=== PATIENT | female | born 2005 | race Caucasian/White ===

== ENCOUNTER 2023-01-31 15:41 | Outpatient (CLI) | payer MEDICAID, SELFPAY ==
[2023-01-31 16:01] VITALS: BP 121/74; PULSE 99
[2023-01-31 16:16] VITALS: BP 110/71; PULSE 85
[2023-01-31 16:30] VITALS: BP 108/67; PULSE 85
[2023-01-31 16:35] VITALS: BP 121/74; PULSE 85
== END 2023-01-31 16:35 | disposition home or self-care (01) ==
LOC: ANHOBOP 15:50 → ANHOBPP 15:50
PROVIDERS: Visit Provider Obstetrics & Gynecology
DX: O42.90 Premature rupture of membranes, unspecified as to length of time between rupture and onset of labor, unspecified weeks of gestation (principal); Z3A.00 Weeks of gestation of pregnancy not specified
CPT/HCPCS: 59025; 84112; 99199

== ENCOUNTER 2023-02-18 19:42 | Observation (INO) | payer MEDICAID, SELFPAY ==
[2023-02-18 20:04] VITALS: BP 122/80; PULSE 84
[2023-02-18 20:21] VITALS: BMI 49.9
--- NOTE | 2023-02-18 20:21 | OBADM ---
This patient, Moisés Olson, admitted to the OB room Labor/Delivery/Recovery 107 for observation. Patient/family oriented to hospital policies and general routines including ID bracelet, bed and alarms, visiting hours, pain management, procedures, bathroom and other care routines, personal items, smoking policy, room service/diet, and visiting hours. Patient/Family are encouraged to report perceived risks to care and to ask questions if they do not understand what they are told or what they should do.
--- NOTE | 2023-03-12 22:55 | PM.OBTRLD ---
OB - Triage/Final Diagnosis Visit Information Comments/Additional reasons for admission: I have assessed the risk for this patient, Moisés Phyllis Olson, and determined that she would benefit from observation care. Final Diagnosis (1) False labor: Code(s): O47.9 - False labor, unspecified Status: Acute
== END 2023-02-18 20:30 | disposition home or self-care (01) ==
PROVIDERS: Admitting Provider Obstetrics & Gynecology; Visit Provider Obstetrics & Gynecology
DX: O47.1 False labor at or after 37 completed weeks of gestation (principal); Z3A.37 37 weeks gestation of pregnancy
CPT/HCPCS: G0378; G0379

== ENCOUNTER 2023-02-27 22:45 | Inpatient (IN) | payer MEDICAID, SELFPAY ==
[2023-02-28] VITALS (339 sets, daily range): BP systolic 85–174; BP diastolic 46–117; PULSE 57–98; RESP 18–22; TEMP 36.1–37; O2SAT 93–100; BMI 52.0
--- NOTE | 2023-02-28 00:38 | LDADM ---
This patient, Moisés Olson, was admitted to Labor/Delivery/Recovery 109 on 02/27/23 at 22:45. Plans for labor, pain management and were discussed with patient. Patient/family oriented to hospital policies and general routines including ID bracelet, bed and alarms, visiting hours, pain management, procedures, bathroom and other care routines, personal items, smoking policy, room service/diet and guest tray routines, security routines, and visiting hours. Patient/Family are encouraged to report perceived risks to care and to ask questions if they do not understand what they are told or what they should do. See OBIX for further documentation.
[2023-02-28 01:31] LABS: Basophils Percent Auto 0.3 % (0.2-1.2); Eosinophils Percent Auto 0.4 % (0-4.4); Hematocrit 36.7 % (37.0-47.0); Hemoglobin 12.8 g/dL (12.0-15.0); Immature Granulocyte Absolute 0.09 K/mm3 (0.00-0.031); Immature Granulocyte Percent A 0.9 % (0-0.5); Lymphocytes Percent Auto 15.3 % (18.3-44.2); Mean Corpuscular HGB Conc 34.9 g/dl (32-36); Mean Corpuscular Hemoglobin 29.5 pg (26-34); Mean Corpuscular Volume 84.6 fl (80-100); Mean Platelet Volume 11.3 fl (7.4-10.4); Monocytes Absolute Auto 0.6 K/mm3 (0.1-0.6); Monocytes Percent Auto 5.5 % (2.6-8.5); Neutrophils Absolute Auto 8.1 K/mm3 (1.3-6.7); Neutrophils Percent Auto 77.6 % (45.5-73.1); Platelet Count Result 141 k/mm3 (150-375); Red Blood Count 4.34 M/mm3 (4.2-5.4); Red Cell Distribution Width 13.5 % (11.5-14.5); White Blood Count 10.4 K/mm3 (4.5-10.0)
[2023-02-28] MEDS: LABETALOL HCL INJ 100 MG/20 ML VIAL 20 MG IV PUSH (01:32)
[2023-02-28] MEDS: LACTATED RINGERS 1,000 ML 75 ML IV CONT ×3 (01:32→22:24)
[2023-02-28] MEDS: MAGNESIUM SULF 4 GM/WATER100ML 4 GM/100 ML BAG IVPB (01:34)
[2023-02-28 01:40] LABS: Uric Acid 7.9 mg/dL (3.0-5.9)
[2023-02-28] MEDS: DINOPROSTONE 10 MG VAG INSERT VAGINAL (01:40)
[2023-02-28] MEDS: MAGNESIUM SULF 20GM/WATER500ML 500 ML 50 MG IV CONT ×3 (01:52→22:25)
[2023-02-28 02:11] LABS: Alanine Aminotransferase 37 U/L (6-35); Albumin Level 2.8 g/dL (3.7-5.6); Alkaline Phosphatase 242 U/L (45-116); Anion Gap 4 mmol/L (8-16); Aspartate Amino Transferase 74 U/L (14-36); Bilirubin,Total 0.9 mg/dL (0.2-1.3); Blood Urea Nitrogen 11 mg/dL (8-21); Calcium 7.8 mg/dL (8.9-10.7); Carbon Dioxide 22 mmol/L (22-30); Chloride 109 mmol/L (98-107); Estimated CRCL calculation 159 ml/min; Estimated Glomerular Filt Rate > 60; Glucose 83 mg/dL (65-110); Potassium 3.4 mmol/L (3.4-5.0); Sodium 135 mmol/L (134-143)
[2023-02-28 04:50] LABS: HIV 1/2 Ab P24 Ag Result Negative (Negative)
[2023-02-28] MEDS: LABETALOL HCL INJ 100 MG/20 ML VIAL 40 MG IV PUSH (06:05)
--- NOTE | 2023-02-28 07:22 | PM.IMHP ---
H&P: HPI History of Present Illness Date/Time: 02/28/23 07:22 Chief Complaint: pt arrived to labor and delivery fo elective IOL, on admission severe range blood pressures noted and 2+ bilateral pitting lower extremity edema. denies arora, visual changes, epigastric pain. Mildly elevated liver enzymes, PLT 141 and uric acid 7.9 cm. Pt's has been uncomplicated except for obesity. Pt has been treated with one dose of labetalol and is now on magnesium sulfate Review of Systems Review of Systems: All systems reviewed & are unremarkable except as noted in HPI and below PMFSH Family History Family History (Updated 02/26/23 @ 14:12 by Bella Rodney RN) Father Diabetes mellitus Mother Diabetes mellitus Social History Social History Smoking status: Never smoker Substance use: never Lack of Transportation: No Lack of Food: Never True Current Housing: I Have Housing Concerned About Future Housing: No Difficulty Paying Gas/Electric Bills: No Difficulty Paying for Meds: No Currently Unemployed: No Education: High School Diploma/GED Difficulty w/ Childcare or Family Care: No Spiritual care concerns: No Meds Home Medications and Allergies Home Medications Medication Instructions Recorded Confirmed Type vit#24-iron amino acid 1 tablet PO DAILY 02/26/23 02/26/23 History chelat-folic acid 30 mg-975 mcg tablet Allergies Allergy/AdvReac Type Severity Reaction Status Date / Time adhesive tape AdvReac Itching Verified 02/26/23 14:10 flu vaccine Allergy Nausea and Uncoded 02/26/23 14:10 Vomiting Vital Signs Vital Signs - 24 hr 02/28/23 00:36 02/28/23 00:43 02/28/23 01:01 Temperature Pulse Rate 71 60 Blood Pressure 174/115 H 167/101 H Pulse Oximetry Oxygen Delivery Room Air 02/28/23 01:16 02/28/23 01:31 02/28/23 01:32 Temperature Pulse Rate 65 57 L Blood Pressure 169/96 H 173/104 H Pulse Oximetry 98 Oxygen Delivery 02/28/23 01:37 02/28/23 01:40 02/28/23 01:42 Temperature Pulse Rate 73 79 Blood Pressure 151/109 H 156/108 H Pulse Oximetry 98 100 Oxygen Delivery 02/28/23 01:45 02/28/23 01:47 02/28/23 01:50 Temperature Pulse Rate 81 82 Blood Pressure 148/102 H 142/102 H Pulse Oximetry 98 Oxygen Delivery 02/28/23 01:52 02/28/23 01:57 02/28/23 02:00 Temperature Pulse Rate 73 Blood Pressure 154/100 H Pulse Oximetry 97 97 Oxygen Delivery 02/28/23 02:02 02/28/23 02:07 02/28/23 02:12 Temperature Pulse Rate Blood Pressure Pulse Oximetry 98 97 97 Oxygen Delivery 02/28/23 02:15 02/28/23 02:17 02/28/23 02:22 Temperature Pulse Rate 68 Blood Pressure 135/97 H Pulse Oximetry 98 98 Oxygen Delivery 02/28/23 02:27 02/28/23 02:30 02/28/23 02:32 Temperature Pulse Rate 84 Blood Pressure 143/98 H Pulse Oximetry 97 97 Oxygen Delivery 02/28/23 02:37 02/28/23 02:42 02/28/23 02:45 Temperature Pulse Rate 68 Blood Pressure 127/88 Pulse Oximetry 98 97 Oxygen Delivery 02/28/23 02:47 02/28/23 02:52 02/28/23 02:57 Temperature Pulse Rate Blood Pressure Pulse Oximetry 97 98 98 Oxygen Delivery 02/28/23 03:00 02/28/23 03:02 02/28/23 03:07 Temperature Pulse Rate 71 Blood Pressure 137/84 Pulse Oximetry 98 98 Oxygen Delivery 02/28/23 03:12 02/28/23 03:15 02/28/23 03:17 Temperature Pulse Rate 75 Blood Pressure 125/88 Pulse Oximetry 98 98 Oxygen Delivery 02/28/23 03:22 02/28/23 03:27 02/28/23 03:30 Temperature Pulse Rate 68 Blood Pressure 136/88 Pulse Oximetry 98 97 Oxygen Delivery 02/28/23 03:32 02/28/23 03:37 02/28/23 03:42 Temperature Pulse Rate Blood Pressure Pulse Oximetry 98 98 98 Oxygen Delivery 02/28/23 03:45 02/28/23 03:47 02/28/23 03:52 Temperature Pulse Rate 72 Blood Pressure 126/91 H Pulse Oximetry 98 98
--- NOTE | 2023-02-28 12:26 | PM.OBPNLAB ---
Pain Control Date/time seen: 02/28/23 12:26 SVE 1-2cm/60/-2 AROM small amount of clear, odorless fluid, will start labetalol 200mg BID orally, co-managed with dr. clark
[2023-02-28] MEDS: LABETALOL HCL 100 MG TABLET 200 MG PO (13:00)
[2023-02-28] MEDS: OXYTOCIN 30 UNITS/NS 500 ML 30 UNITS/500 ML BAG 6 UNITS IV CONT ×2 (14:00→19:23)
--- NOTE | 2023-02-28 15:06 | WPDANESEPPF ---
Anes - Initial Pre Proc Eval Date/Time: 02/28/23 15:06 Surgeon: Tomy Rollins MD Pre Op Diagnosis: Labor Patient Data Age: 17 Gender: F Height: 1.55 m Weight: 125 kg Last Vital Signs Temp 36.7 C 02/28/23 11:30 Pulse 82 02/28/23 15:05 Resp 20 02/28/23 11:30 BP 89/61 L 02/28/23 15:05 Pulse Ox 98 02/28/23 15:04 O2 Del Method Room Air 02/28/23 00:36 Allergies Allergy/AdvReac Type Severity Reaction Status Date / Time adhesive tape AdvReac Itching Verified 02/26/23 14:10 flu vaccine Allergy Nausea and Uncoded 02/26/23 14:10 Vomiting Home Medications Medication Instructions Recorded Confirmed Type vit#24-iron amino acid 1 tablet PO DAILY 02/26/23 02/26/23 History chelat-folic acid 30 mg-975 mcg tablet Laboratory Tests 02/28/23 02/28/23 01:01 01:05 WBC 10.4 H K/mm3 (4.5-10.0) RBC 4.34 M/mm3 (4.2-5.4) Hgb 12.8 g/dL (12.0-15.0) Hct 36.7 L % (37.0-47.0) MCV 84.6 fl (80-100) MCH 29.5 pg (26-34) MCHC 34.9 g/dl (32-36) RDW 13.5 % (11.5-14.5) Plt Count 141 L k/mm3 (150-375) MPV 11.3 H fl (7.4-10.4) Immature Gran % (Auto) 0.9 H % (0-0.5) Neut % (Auto) 77.6 H % (45.5-73.1) Lymph % (Auto) 15.3 L % (18.3-44.2) [place] % (Auto) 5.5 % (2.6-8.5) Eos % (Auto) 0.4 % (0-4.4) Baso % (Auto) 0.3 % (0.2-1.2) Lymph # (Auto) 1.60 K/mm3 (0.9-3.2) [place] # (Auto) 0.6 K/mm3 (0.1-0.6) Eos # (Auto) 0.0 K/mm3 (0-0.3) Baso # (Auto) 0.0 K/mm3 (0.0-0.1) Abs Immat Gran (auto) 0.09 H K/mm3 (0.00-0.031) Absolute Neuts (auto) 8.1 H K/mm3 (1.3-6.7) Absolute Nucleated RBC 0.0 K/mm3 (0.0-0.012) Nucleated RBC % 0.0 % (0.0-0.2) Sodium 135 mmol/L (134-143) Potassium 3.4 mmol/L (3.4-5.0) Chloride 109 H mmol/L (98-107) Carbon Dioxide 22 mmol/L (22-30) Anion Gap 4 L mmol/L (8-16) BUN 11 mg/dL (8-21) Creatinine 0.60 L mg/dL (0.7-1.0) Estim Creat Clear Calc 159 ml/min Estimated GFR > 60 (59 - ) Glucose 83 mg/dL (65-110) Uric Acid 7.9 H mg/dL (3.0-5.9) Calcium 7.8 L mg/dL (8.9-10.7) Total Bilirubin 0.9 mg/dL (0.2-1.3) AST 74 H U/L (14-36) ALT 37 H U/L (6-35) Alkaline Phosphatase 242 H U/L (45-116) Total Protein 5.0 L g/dL (6.3-8.6) Albumin 2.8 L g/dL (3.7-5.6) RPR Pending HIV 1&2 Ab/P24 Ag 4thGn Negative (Negative) Blood Type O Negative Antibody Screen Positive Antibody Identification Passive Due to RH Imm Glob Antigen Identification Not Reportable ANGI, IgG Interpret Not Performed ANGI, Poly Interpret Negative ANGI, Complement Interp Not Performed Patient hx anesthesia problems: none Family hx anesthesia problems: none Results Review: All pre-operative results and documents have been reviewed as part of the pre-operative evaluation. [facility] Family History Family History Father Diabetes mellitus Mother Diabetes mellitus Social History Social History Smoking status: Never smoker Substance use: never Lack of Transportation: No Lack of Food: Never True Current Housing: I Have Housing Concerned About Future Housing: No Difficulty Paying Gas/Electric Bills: No Difficulty Paying for Meds: No Currently Unemployed: No Education: High School Diploma/GED Difficulty w/ Childcare or Family Care: No Spiritual care concerns: No Anes - Eval Final PreProcedure Day of Procedure 02/28/23 15:06 Patient weight: super morbidly obese Neurological: alert and oriented ASA classification: III Emergent: no Anesthetic plan
[2023-02-28] MEDS: SODIUM CHLORIDE 0.9% IV 300 ML 600 ML I-UTERINE (18:00)
[2023-03-01] VITALS (224 sets, daily range): BP systolic 110–163; BP diastolic 58–117; PULSE 56–117; RESP 15–18; TEMP 36.2–37.6; O2SAT 94–100
[2023-03-01] MEDS: LABETALOL HCL 100 MG TABLET 200 MG PO ×2 (01:02→12:58)
[2023-03-01] MEDS: CALCIUM CARBONATE (TUMS) 500 MG (200 MG ELEMENTAL) 400 MG PO (01:36)
[2023-03-01] MEDS: OXYTOCIN 30 UNITS/NS 500 ML 30 UNITS/500 ML BAG 20 UNITS IV CONT (07:00)
[2023-03-01] MEDS: AMPICILLIN 2 GM/NS 100 ML 2 GM/100 ML BAG IVPB (07:02)
[2023-03-01 07:18] LABS: Mean Platelet Volume 11.2 fl (7.4-10.4); Platelet Count Result 151 k/mm3 (150-375)
[2023-03-01 07:39] LABS: Alanine Aminotransferase 35 U/L (6-35); Albumin Level 3.1 g/dL (3.7-5.6); Alkaline Phosphatase 287 U/L (45-116); Anion Gap 3 mmol/L (8-16); Aspartate Amino Transferase 45 U/L (14-36); Bilirubin,Total 0.5 mg/dL (0.2-1.3); Blood Urea Nitrogen 8 mg/dL (8-21); Carbon Dioxide 25 mmol/L (22-30); Chloride 105 mmol/L (98-107); Estimated CRCL calculation 122 ml/min; Estimated Glomerular Filt Rate > 60; Glucose 90 mg/dL (65-110); Potassium 3.7 mmol/L (3.4-5.0); Sodium 133 mmol/L (134-143); Uric Acid 8.8 mg/dL (3.0-5.9)
[2023-03-01] MEDS: MAGNESIUM SULF 20GM/WATER500ML 500 ML 50 MG IV CONT ×2 (07:43→17:48)
--- NOTE | 2023-03-01 07:51 | PM.OBPNLAB ---
Pain Control Date/time seen: 03/01/23 07:51 pt bp not severe range this am, doing well, denies sxs, on pitocin, 5 cm /90 per RN, dr clark aware Pain control: tolerating well and epidural
[2023-03-01 10:05] LABS: Rapid Plasma Reagin Non-Reactive (NonReactive)
[2023-03-01] MEDS: LACTATED RINGERS 1,000 ML 75 ML IV CONT (10:12)
[2023-03-01] MEDS: AMPICILLIN 1 GM/NS 50 ML 1 GM/50 ML BAG IVPB (10:12)
[2023-03-01] MEDS: ACETAMINOPHEN 500 MG TABLET 1000 MG PO (11:05)
--- NOTE | 2023-03-01 15:01 | WPDHPUPDATE1 ---
History and Physical Update Update Date/Time: 03/01/23 15:01 17-year-old primiparous female with preeclampsia on magnesium sulfate. She has failed to progress in labor. She has reassuring status. We have agreed to proceed with delivery. She understands risks, benefits, and alternatives. She has completed the informed consent process is ready to proceed. History and Physical has been reviewed, including an updated exam of the patient. There are NO changes in the patient's condition. Risks, benefits, and alternatives have been discussed and questions answered. Patient agrees to proceed with procedure.
[2023-03-01] MEDS: ceFAZolin 3 GM/D5W 100 ML 100 ML IVPB (15:04)
[2023-03-01] MEDS: AZITHROMYCIN 500 MG/NS 250 ML 500 MG/250 ML BAG 250 MG IVPB (15:30)
[2023-03-01] MEDS: miSOPROStol 200 MCG TABLET 1000 MCG RECTAL (16:00)
--- NOTE | 2023-03-01 16:01 | P.OP_ITS ---
Procedure Note - Detailed Date of Procedure 03/01/23 Pre-op Diagnosis Labor Failure to progress Post-op Diagnosis Same Procedure Performed Low-transverse section Surgeon Tomy Rollins MD Anesthesia Spinal Indications failure to progress Findings Normal gestational maternal anatomy, average size , normal Apgars. meconium Description of Procedure The patient was taken the operating room. She was prepped and draped in dorsal supine position with a leftward tilt. This was done after spinal anesthetic was applied. A low-transverse skin incision was made and carried down till of the fascia with the knife. The fascial incision was made with the knife. The fascial incision was extended laterally with Clemens scissors. The fascia was tented upward superiorly and inferiorly the rectus muscles were dissected off bluntly. The rectus muscles were the midline. The preperitoneal fat and peritoneum were dissected open bluntly at the superior aspect of the rectus muscles. The peritoneal incision was extended superior and inferior with good position of bladder. The uterine incision was made with a scalpel down to the level of the amniotic cavity. The amniotic cavity was e ntered bluntly. The infant was delivered. The cord was clamped and cut and the infant was handed off to waiting pediatric staff. Cord bloods were obtained. The placenta was removed manually. The uterus was exteriorized. The uterus was cleared of all clots, debris and membranes. The uterus was closed in 0 Vicryl running lock fashion. An imbricating over a was placed along the incision line as well. The uterus was returned to the abdomen. The gutters were cleared of all clots and debris. The fascia was closed with 0 Vicryl running fashion. The subcutaneous tissue was irrigated pinpoint bleeders were cauterized. The skin was closed with subcuticular absorbable genesis. The skin incision line was covered with glue. The patient tolerated the procedure well. She has taken recovery room in stable condition. Sponge lap and needle counts were correct x2. Urine Output 200 Complications No immediate complications Condition Stable Disposition PACU
[2023-03-01] MEDS: OXYTOCIN 30 UNITS/NS 500 ML 30 UNITS/500 ML BAG 125 UNITS IV CONT (17:48)
[2023-03-01] MEDS: KETOROLAC 30 MG/ML VIAL (*BKC) IV PUSH (21:00)
[2023-03-01] MEDS: HYDROcodone/acetaminophen (*CRX) 5-325 MG TABLET 1 TAB PO (21:01)
[2023-03-01] MEDS: DEXTROSE 5%/0.45% SOD CHL 1,000 ML 125 ML IV CONT (21:57)
[2023-03-02] VITALS (8 sets, daily range): BP systolic 103–123; BP diastolic 54–70; PULSE 72–84; RESP 18–20; TEMP 36.5–36.9; O2SAT 95–96
[2023-03-02] MEDS: LABETALOL HCL 100 MG TABLET 200 MG PO ×2 (01:08→12:32)
[2023-03-02] MEDS: MAGNESIUM SULF 20GM/WATER500ML 500 ML 50 MG IV CONT (04:36)
[2023-03-02] MEDS: DEXTROSE 5%/0.45% SOD CHL 1,000 ML 125 ML IV CONT (04:40)
[2023-03-02] MEDS: HYDROcodone/acetaminophen (*CRX) 5-325 MG TABLET 1 TAB PO ×5 (04:44→23:13)
[2023-03-02] MEDS: KETOROLAC 30 MG/ML VIAL (*BKC) IV PUSH (04:44)
[2023-03-02] MEDS: SIMETHICONE 80 MG TAB.CHEW PO ×2 (04:45→17:15)
[2023-03-02 05:31] LABS: Basophils Percent Auto 0.4 % (0.2-1.2); Hematocrit 34.2 % (37.0-47.0); Hemoglobin 11.6 g/dL (12.0-15.0); Immature Granulocyte Absolute 0.04 K/mm3 (0.00-0.031); Immature Granulocyte Percent A 0.4 % (0-0.5); Immature Platelet Fraction Pct 7.5 % (0.9-11.2); Lymphocytes Absolute Auto 0.63 K/mm3 (0.9-3.2); Lymphocytes Percent Auto 5.5 % (18.3-44.2); Mean Corpuscular HGB Conc 33.9 g/dl (32-36); Mean Corpuscular Hemoglobin 29.7 pg (26-34); Mean Corpuscular Volume 87.7 fl (80-100); Mean Platelet Volume 11.3 fl (7.4-10.4); Monocytes Absolute Auto 0.4 K/mm3 (0.1-0.6); Monocytes Percent Auto 3.3 % (2.6-8.5); Neutrophils Absolute Auto 10.3 K/mm3 (1.3-6.7); Neutrophils Percent Auto 90.4 % (45.5-73.1); Platelet Count Result 123 k/mm3 (150-375); Red Cell Distribution Width 13.6 % (11.5-14.5); White Blood Count 11.4 K/mm3 (4.5-10.0)
--- NOTE | 2023-03-02 07:34 | P.PNOB_ITS ---
OB - PN: Subj Subjective Date/time seen: 03/02/23 07:34 s/p section day 1 baby doing well no flatus present urine output good pain well managed magnesium sulfate x 24 hours post delivery OB - PN: Obj Data Labs 03/02/23 05:09 03/01/23 06:34 Labs: Laboratory Results - last 24 hr 02/28/23 03/01/23 03/02/23 01:05 06:34 05:09 WBC 11.4 H RBC 3.90 L Hgb 11.6 L Hct 34.2 L MCV 87.7 MCH 29.7 MCHC 33.9 RDW 13.6 Plt Count 123 L MPV 11.3 H Immature Gran % (Auto) 0.4 Neut % (Auto) 90.4 H Lymph % (Auto) 5.5 L [place] % (Auto) 3.3 Eos % (Auto) 0.0 Baso % (Auto) 0.4 Lymph # (Auto) 0.63 L [place] # (Auto) 0.4 Eos # (Auto) 0.0 Baso # (Auto) 0.0 Abs Immat Gran (auto) 0.04 H Absolute Neuts (auto) 10.3 H Absolute Nucleated RBC 0.0 Nucleated RBC % 0.0 % Immature Plt Fraction 7.5 Sodium 133 L Potassium 3.7 Chloride 105 Carbon Dioxide 25 Anion Gap 3 L BUN 8 Creatinine 0.80 Estim Creat Clear Calc 122 Estimated GFR > 60 Glucose 90 Uric Acid 8.8 H Calcium 7.0 L Total Bilirubin 0.5 AST 45 H ALT 35 Alkaline Phosphatase 287 H Total Protein 6.0 L Albumin 3.1 L RPR Non-reactive OB - PN A/P Time Spent With Patient Time: Total time spent is greater than 50% in coordination of care (as documented) at patient's floor/unit and/or counseling patient: Review of Systems Review of Systems: All systems reviewed & are unremarkable except as noted in HPI and below Exam Narrative: Incision CDI Const: General: cooperative and healthy appearing Chest: Chest palpation & inspection: normal inspection of the chest Resp: Effort & Inspection: normal respiratory effort Cardio: Rate: regular rate Rhythm: regular rhythm GI: Other: soft Skin: General skin exam: normal color Extrem: Right lower extremity: normal to inspection Left lower extremity: normal to inspection Psych: Appearance: grossly normal
--- NOTE | 2023-03-02 08:17 | PC.NURSE ---
[phone] Father of baby called out requesting assistance. Introductions were made and mother is demonstrating effective to the right breast using a laid-back cross cradle positioning. Mother denies any pain and infant has appropriate rocking jaw motion with intermittent suck/swallow/pausing. Resources provided for inpatient with name written on the white board and how to use the call light to request. Mother voiced understanding of information and will call if there is a request for assistance. Reported to the primary RN.
--- NOTE | 2023-03-02 08:24 | WPDANLDPN2 ---
Anes-Prog Note L&D Date/Time: 03/02/23 08:24 Comfortable throughout: section Neuraxial method: epidural Epidural/Spinal procedure site: clean & non-tender Neuro status: Neuro function grossly intact. Cardiovascular status: normal Respiratory status: normal Airway patency: baseline Mental status: baseline Post-Op hydration status: normal Vital Signs: Last Vital Signs Temp 36.5 C 03/02/23 05:00 Pulse 77 03/02/23 05:00 Resp 18 03/02/23 05:00 BP 104/61 03/02/23 05:00 Pulse Ox 96 03/02/23 05:00 O2 Del Method Room Air 03/02/23 05:00 Pain score (VAS): 0 I/O: Intake & Output 03/01/23 03/02/23 03/02/23 23:59 07:59 15:59 Intake Total 1800 2700 Output Total 890 925 Balance 910 1775 Post-procedural complaints: none Patient feedback: Patient satisfied with anesthetic care.
--- NOTE | 2023-03-02 08:24 | WPDANLDNPN2 ---
Anes-Prog Note L&D-Neuraxial Date/Time: 03/02/23 08:24 Neuraxial medications: epidural PF morphine Opiod-related complaints: none Patient feedback: Patient satisfied with post-operative pain management.
[2023-03-02] MEDS: DOCUSATE SODIUM 100 MG CAPSULE PO ×2 (08:36→17:14)
[2023-03-02] MEDS: MULTIVIT/MIN/PREN/FOL AC/IRON TABLET 1 TAB PO (08:36)
[2023-03-02] MEDS: IBUPROFEN 600 MG TABLET PO ×3 (10:55→23:13)
[2023-03-02] MEDS: ONDANSETRON INJ 4 MG/2 ML VIAL IV PUSH (13:05)
[2023-03-03] VITALS (9 sets, daily range): BP systolic 107–147; BP diastolic 63–95; PULSE 72–89; RESP 18; TEMP 36.8–38.2; O2SAT 95–99
[2023-03-03] MEDS: LABETALOL HCL 100 MG TABLET 200 MG PO ×3 (00:23→23:19)
[2023-03-03 03:40] LABS: Basophils Percent Auto 0.3 % (0.2-1.2); Eosinophils Percent Auto 0.3 % (0-4.4); Hematocrit 33.2 % (37.0-47.0); Hemoglobin 10.8 g/dL (12.0-15.0); Immature Granulocyte Absolute 0.04 K/mm3 (0.00-0.031); Immature Granulocyte Percent A 0.6 % (0-0.5); Immature Platelet Fraction Pct 6.4 % (0.9-11.2); Lymphocytes Absolute Auto 0.52 K/mm3 (0.9-3.2); Lymphocytes Percent Auto 7.6 % (18.3-44.2); Mean Corpuscular HGB Conc 32.5 g/dl (32-36); Mean Corpuscular Hemoglobin 29.6 pg (26-34); Mean Platelet Volume 10.8 fl (7.4-10.4); Monocytes Absolute Auto 0.2 K/mm3 (0.1-0.6); Monocytes Percent Auto 3.4 % (2.6-8.5); Neutrophils Percent Auto 87.8 % (45.5-73.1); Platelet Count Result 110 k/mm3 (150-375); Red Blood Count 3.65 M/mm3 (4.2-5.4); Red Cell Distribution Width 14.1 % (11.5-14.5); White Blood Count 6.9 K/mm3 (4.5-10.0)
[2023-03-03 03:53] LABS: Uric Acid 9.2 mg/dL (3.0-5.9)
[2023-03-03 03:59] LABS: Alanine Aminotransferase 19 U/L (6-35); Albumin Level 2.5 g/dL (3.7-5.6); Alkaline Phosphatase 175 U/L (45-116); Anion Gap 3 mmol/L (8-16); Aspartate Amino Transferase 30 U/L (14-36); Bilirubin,Total 0.5 mg/dL (0.2-1.3); Blood Urea Nitrogen 14 mg/dL (8-21); Calcium 6.2 mg/dL (8.9-10.7); Carbon Dioxide 23 mmol/L (22-30); Chloride 104 mmol/L (98-107); Estimated CRCL calculation 110 ml/min; Estimated Glomerular Filt Rate > 60; Glucose 79 mg/dL (65-110); Potassium 3.7 mmol/L (3.4-5.0); Sodium 130 mmol/L (134-143)
[2023-03-03] MEDS: IBUPROFEN 600 MG TABLET PO ×3 (08:13→23:20)
[2023-03-03] MEDS: HYDROcodone/acetaminophen (*CRX) 5-325 MG TABLET 1 TAB PO ×2 (08:13→15:30)
--- NOTE | 2023-03-03 09:04 | PM.OBPNVD ---
OB - PN: Subj Subjective Date/time seen: 03/03/23 09:04 magnesium sulfate stopped 03/02/23 bp normotensive denies arora, visual changes, epigastric pain labs improving baby bottle feeding and doing well OB - PN: Obj Data Labs 03/03/23 03:03 03/03/23 03:03 Labs: Laboratory Results - last 24 hr 03/03/23 03:03 WBC 6.9 RBC 3.65 L Hgb 10.8 L Hct 33.2 L MCV 91.0 MCH 29.6 MCHC 32.5 RDW 14.1 Plt Count 110 L MPV 10.8 H Immature Gran % (Auto) 0.6 H Neut % (Auto) 87.8 H Lymph % (Auto) 7.6 L [place] % (Auto) 3.4 Eos % (Auto) 0.3 Baso % (Auto) 0.3 Lymph # (Auto) 0.52 L [place] # (Auto) 0.2 Eos # (Auto) 0.0 Baso # (Auto) 0.0 Abs Immat Gran (auto) 0.04 H Absolute Neuts (auto) 6.0 Absolute Nucleated RBC 0.0 Nucleated RBC % 0.0 % Immature Plt Fraction 6.4 Sodium 130 L Potassium 3.7 Chloride 104 Carbon Dioxide 23 Anion Gap 3 L BUN 14 D Creatinine 0.90 Estim Creat Clear Calc 110 Estimated GFR > 60 Glucose 79 Uric Acid 9.2 H Calcium 6.2 L Total Bilirubin 0.5 AST 30 ALT 19 Alkaline Phosphatase 175 H Total Protein 5.0 L Albumin 2.5 L OB - PN A/P Plan day: 2 Plan: routine care Time Spent With Patient Time: Total time spent is greater than 50% in coordination of care (as documented) at patient's floor/unit and/or counseling patient: Review of Systems Review of Systems: All systems reviewed & are unremarkable except as noted in HPI and below Exam Const: General: cooperative and healthy appearing Chest: Chest palpation & inspection: normal inspection of the chest Resp: Effort & Inspection: normal respiratory effort and able to speak in complete sentences Cardio: Rate: regular rate Rhythm: regular rhythm GI: Inspection: normal to inspection Skin: General skin exam: normal color Extrem: Right lower extremity: edema Left lower extremity: edema Psych: Appearance: grossly normal Mental Status: mental status grossly normal
[2023-03-03] MEDS: MULTIVIT/MIN/PREN/FOL AC/IRON TABLET 1 TAB PO (09:54)
[2023-03-03] MEDS: DOCUSATE SODIUM 100 MG CAPSULE PO ×2 (09:54→17:18)
--- NOTE | 2023-03-03 16:45 | PC.NURSE ---
Incentive spirometer given to pt and explained use. Pt demonstrated and stated understanding.
[2023-03-03 17:07] LABS: Appearance Urine Clear (Clear); Bacteria Urine None Seen /hpf; Bilirubin Urine Negative (Negative); Blood Urine Trace (Negative); Color Urine Yellow (Yellow); Glucose Urine UA Negative (Negative); Ketones Urine Negative (Negative); Leukocyte Esterase Ur Negative LEU/UL (Negative); Nitrate Urine Negative (Negative); Non Pathogenic Casts 0-2; Protein Urine 1+ mg/dL (Negative); RBC Urine 0-2 /hpf (0-2); Specific Grav Ur 1.009 (1.001-1.035); Squamous Epithelial Cell Urine None seen /hpf (Few); Urobilinogen Urine 0.2 mg/dL (<2.0); WBC Urine 0-5 /hpf; pH Urine 5.5 (5.0-9.0)
[2023-03-03 17:11] LABS: Add Urine Microscopic? YES
[2023-03-03] MEDS: HYDROcodone/acetaminophen (*CRX) 10-325 MG TABLET 1 TAB PO (23:23)
[2023-03-04] VITALS (11 sets, daily range): BP systolic 117–159; BP diastolic 81–101; PULSE 63–102; RESP 18–20; TEMP 36.3–38.2; O2SAT 96–99
[2023-03-04] MEDS: IBUPROFEN 600 MG TABLET PO ×3 (05:45→23:58)
[2023-03-04] MEDS: HYDROcodone/acetaminophen (*CRX) 5-325 MG TABLET 1 TAB PO ×4 (05:46→23:59)
[2023-03-04 05:52] LABS: Basophils Percent Auto 0.4 % (0.2-1.2); Eosinophils Absolute Auto 0.1 K/mm3 (0-0.3); Eosinophils Percent Auto 1.6 % (0-4.4); Hematocrit 28.7 % (37.0-47.0); Hemoglobin 9.3 g/dL (12.0-15.0); Immature Granulocyte Absolute 0.03 K/mm3 (0.00-0.031); Immature Granulocyte Percent A 0.6 % (0-0.5); Immature Platelet Fraction Pct 5.3 % (0.9-11.2); Lymphocytes Absolute Auto 0.85 K/mm3 (0.9-3.2); Lymphocytes Percent Auto 17.5 % (18.3-44.2); Mean Corpuscular HGB Conc 32.4 g/dl (32-36); Mean Corpuscular Hemoglobin 29.3 pg (26-34); Mean Corpuscular Volume 90.5 fl (80-100); Mean Platelet Volume 10.6 fl (7.4-10.4); Monocytes Absolute Auto 0.3 K/mm3 (0.1-0.6); Monocytes Percent Auto 5.2 % (2.6-8.5); Neutrophils Absolute Auto 3.6 K/mm3 (1.3-6.7); Neutrophils Percent Auto 74.7 % (45.5-73.1); Platelet Count Result 111 k/mm3 (150-375); Red Blood Count 3.17 M/mm3 (4.2-5.4); Red Cell Distribution Width 13.8 % (11.5-14.5); White Blood Count 4.9 K/mm3 (4.5-10.0)
[2023-03-04] MEDS: DOCUSATE SODIUM 100 MG CAPSULE PO ×2 (10:36→16:33)
[2023-03-04] MEDS: LABETALOL HCL 100 MG TABLET 200 MG PO (10:36)
[2023-03-04] MEDS: MULTIVIT/MIN/PREN/FOL AC/IRON TABLET 1 TAB PO (10:36)
--- NOTE | 2023-03-04 12:10 | PM.OBPNVD ---
OB - PN: Subj Subjective Date/time seen: 03/04/23 12:10 Patient comments: no complaints and pain well controlled baby status: bottle feeding well [place] feeding status: exclusively bottle feeding Narrative: BPS mildly elevated. Denies TRIMBLE/BV/EP. Tmax 100.8 yesterday, afebrile since including just now with no antipyretics on board. Doing incentive spirometry. OB - PN: Obj Data Labs 03/04/23 05:40 03/03/23 03:03 Labs: Laboratory Results - last 24 hr 03/03/23 03/04/23 16:42 05:40 WBC 4.9 RBC 3.17 L Hgb 9.3 L Hct 28.7 L MCV 90.5 MCH 29.3 MCHC 32.4 RDW 13.8 Plt Count 111 L MPV 10.6 H Immature Gran % (Auto) 0.6 H Neut % (Auto) 74.7 H Lymph % (Auto) 17.5 L [place] % (Auto) 5.2 Eos % (Auto) 1.6 Baso % (Auto) 0.4 Lymph # (Auto) 0.85 L [place] # (Auto) 0.3 Eos # (Auto) 0.1 Baso # (Auto) 0.0 Abs Immat Gran (auto) 0.03 Absolute Neuts (auto) 3.6 Absolute Nucleated RBC 0.0 Nucleated RBC % 0.0 % Immature Plt Fraction 5.3 Urine Color Yellow Urine Appearance Clear Urine pH 5.5 Ur Specific [place] 1.009 Urine Protein 1+ H Urine Glucose (UA) Negative Urine Ketones Negative Ur Blood (Man) Trace Urine Nitrate Negative Urine Bilirubin Negative Urine Urobilinogen 0.2 Leukocyte Esterase Rfl Negative Urine RBC 0-2 Urine WBC 0-5 Ur Squamous Epith Cells None seen Urine Bacteria None seen Urine Casts 0-2 OB - PN A/P Assessment and Plan (1) Preeclampsia: Qualifiers: Trimester: third trimester Qualified Code(s): O14.93 - Unspecified pre-eclampsia, third trimester Code(s): O14.90 - Unspecified pre-eclampsia, unspecified trimester Status: Acute Plan BPs stable, continue labetalol low grade fever yesterday, has not persisted. continue IC. UA neg. incision C/D/I. Temps today prior to motrin doses to make sure not masking. DC home tomorrow if remains afebrile. Plan day: 3 Plan: routine care Time Spent With Patient Time: Total time spent is greater than 50% in coordination of care (as documented) at patient's floor/unit and/or counseling patient: Exam Narrative: NAD abdomen soft, appropriately tender, incision CDI Extremities nontender with 1+ edema
[2023-03-04] MEDS: LABETALOL HCL 100 MG TABLET 300 MG PO (21:02)
[2023-03-05 05:26] VITALS: BP 150/97; TEMP 36.7
--- NOTE | 2023-03-05 08:00 | PC.NURSE ---
PT introductions made and plan of care discussed per post op csection, daily care activities, PIH, pain management, bottle feeding and pending discharge to home. PT and spouse both recipients of such instructions and no barriers to learning identified at this time. PT received such instructions per one to one discussion, mom baby care guide and demonstrations this shift. PT verbalized understanding of such care.
[2023-03-05 08:10] VITALS: BP 148/93; PULSE 80; RESP 18; TEMP 37.6; O2SAT 99
[2023-03-05 08:30] VITALS: PULSE 80; RESP 18; O2SAT 99
--- NOTE | 2023-03-05 08:36 | P.DS_ITS ---
DS: Admitting Diagnosis Discharge Date 03/05/2023 Admitting Diagnosis term DS: Discharge Diagnosis Discharge Diagnosis (1) Preeclampsia: Qualifiers: Trimester: third trimester Qualified Code(s): O14.93 - Unspecified pre- eclampsia, third trimester Code(s): O14.90 - Unspecified pre-eclampsia, unspecified trimester Status: Acute OB - DS: Summary OB Procedures : None OB Procedures Intrapartum: OB Procedures: : None Peripartum Data Procedures: Procedures Operation Date: 03/01/23 15:00 Actual Procedure Side Surgeon p Section Tomy Rollins MD Time Spent with Patient Time attestation: Total time spent providing and/or coordinating discharge services: DS: Data Data Completed and Pending Pending studies at discharge: Pending at discharge 03/01/23 16:26 Surgical [PTH] Routine Discharge Plan Discharge Attending physician on discharge: Tomy Rollins Discharging Clinician: Tomy Rollins Patient Disposition: Home, Self-Care Activity: pelvic rest Diet: regular Patient Instructions: Antibiotic Form Stand Alone Forms: General Discharge Information Follow-up/Referrals: Tomy Rollins MD [Physician] - Discharge Medications: New hydrocodone-acetaminophen 5-325 mg tablet 1 tablet PO Q4H PRN (Reason: pain) Qty: 25 0RF Continued Complete 30-975 mg-mcg Tablet 1 tablet PO DAILY Date of admission: 02/27/23 22:45 Primary Care Provider: Randa Patricio Admitting Provider: Tomy Rollins Attending physician on admission: Tomy Rollins Condition: Stable
[2023-03-05] MEDS: MULTIVIT/MIN/PREN/FOL AC/IRON TABLET 1 TAB PO (08:47)
[2023-03-05] MEDS: IBUPROFEN 600 MG TABLET PO (08:47)
[2023-03-05 08:48] VITALS: PULSE 80
[2023-03-05] MEDS: LABETALOL HCL 100 MG TABLET 300 MG PO (08:48)
[2023-03-05] MEDS: SIMETHICONE 80 MG TAB.CHEW PO (08:48)
[2023-03-05] MEDS: DOCUSATE SODIUM 100 MG CAPSULE PO (08:48)
[2023-03-05] MEDS: HYDROcodone/acetaminophen (*CRX) 5-325 MG TABLET 1 TAB PO (08:49)
[2023-03-05] MEDS: MEASLES,MUMPS,RUBELLA VACCINE 0.5 ML VIAL (11:50)
--- NOTE | 2023-03-05 12:00 | PC.NURSE ---
PT received discharge instructions per protocol. PT insisted on baby having a baby hansen shaped head support in car seat that did not come with car seat despite instructions. PT discharged to home ambulatory accompanied by spouse and infant and taken to waiting car. Follow up appts confirmed.
--- NOTE | 2023-03-05 12:29 | PC.NURSE ---
Reported to RN that mother had changed her mind and switched to bottle feeding.
[2023-03-06 10:22] VITALS: BP 136/86; PULSE 86; RESP 20; TEMP 36.9; O2SAT 99
== END 2023-03-05 12:00 | disposition home or self-care (01) | DRG 540 ==
LOC: ANHLDR 02-28 12:11 → ANHOB2 03-01 19:17
PROVIDERS: Obstetrics & Gynecology; Admitting Provider Obstetrics & Gynecology; PCP Advanced Practice Midwife; Visit Provider Obstetrics & Gynecology
PROC: 10D00Z1 Extraction of Products of Conception, Low, Open Approach (ICD-10-PCS; CPT 59514; principal; 2023-03-01 15:00)
DX: O62.2 Other uterine inertia (principal); O75.2 Pyrexia during labor, not elsewhere classified; O12.04 Gestational edema, complicating childbirth; O99.214 Obesity complicating childbirth; O14.94 Unspecified pre-eclampsia, complicating childbirth; O77.0 Labor and delivery complicated by meconium in amniotic fluid; O13.4 Gestational [pregnancy-induced] hypertension without significant proteinuria, complicating childbirth; O69.81X0 Labor and delivery complicated by cord around neck, without compression, not applicable or unspecified; Z3A.39 39 weeks gestation of pregnancy; Z37.0 Single live birth
CPT/HCPCS: 36415; 80053; 81001; 84550; 85025; 85049; 85055; 86592; 86703; 86850; 86880; 86900; 86901; 86902; 88307; 88312; 90710; A9270; G0432; J0290; J0456; J0690; J1100; J1885; J2274; J2370; J2405; J2590; J2795; J3475; J7030; J7120

== ENCOUNTER 2023-03-08 09:50 | Inpatient (IN) | payer MEDICAID, SELFPAY ==
[2023-03-08] VITALS (21 sets, daily range): BP systolic 140–159; BP diastolic 83–105; PULSE 64–98; RESP 18; TEMP 36.9–37.2; O2SAT 84–100; BMI 53.7
--- NOTE | 2023-03-08 08:57 | OBADM ---
This patient, Moisés Olson, admitted to the OB room OB Post 117 for observation. Patient/family oriented to hospital policies and general routines including ID bracelet, bed and alarms, visiting hours, pain management, procedures, bathroom and other care routines, personal items, smoking policy, room service/diet, and visiting hours. Patient/Family are encouraged to report perceived risks to care and to ask questions if they do not understand what they are told or what they should do.
--- NOTE | 2023-03-08 09:20 | PC.NURSE ---
pt denies symptoms of related to blood pressure. Pt does rate her pain 7/10 at her incision site. Pt reports being in Dr. Zavala office last night around 5 and he packed her wound. Pt was then seen again the AM by the MD and told to come to L & D for bp labs and incision check.
--- NOTE | 2023-03-08 09:30 | PC.NURSE ---
Dr. Rollins called for orders regarding pts blood pressure and wound. Order received for PIH labs and wound consult.
[2023-03-08] MEDS: HYDROcodone/acetaminophen (*CRX) 10-325 MG TABLET 1 TAB PO ×4 (09:42→21:22)
--- NOTE | 2023-03-08 09:45 | PC.NURSE ---
Maxine managed care director nurse at the bedside assessing the pt.
[2023-03-08 10:30] LABS: Basophils Percent Auto 0.5 % (0.2-1.2); Eosinophils Absolute Auto 0.2 K/mm3 (0-0.3); Eosinophils Percent Auto 3.1 % (0-4.4); Hematocrit 29.9 % (37.0-47.0); Hemoglobin 9.7 g/dL (12.0-15.0); Immature Granulocyte Absolute 0.14 K/mm3 (0.00-0.031); Immature Granulocyte Percent A 2.3 % (0-0.5); Lymphocytes Absolute Auto 0.84 K/mm3 (0.9-3.2); Lymphocytes Percent Auto 13.6 % (18.3-44.2); Mean Corpuscular HGB Conc 32.4 g/dl (32-36); Mean Corpuscular Volume 89.5 fl (80-100); Mean Platelet Volume 9.6 fl (7.4-10.4); Monocytes Absolute Auto 0.3 K/mm3 (0.1-0.6); Monocytes Percent Auto 5.5 % (2.6-8.5); Neutrophils Absolute Auto 4.6 K/mm3 (1.3-6.7); Platelet Count Result 222 k/mm3 (150-375); Red Blood Count 3.34 M/mm3 (4.2-5.4); White Blood Count 6.2 K/mm3 (4.5-10.0)
--- NOTE | 2023-03-08 10:45 | PC.NURSE ---
Maxine CHEATHAMhealthcare administrator nurse at the bedside applying wound care vac to the pt.
[2023-03-08 10:52] LABS: Alanine Aminotransferase 17 U/L (6-35); Albumin Level 2.9 g/dL (3.7-5.6); Alkaline Phosphatase 214 U/L (45-116); Anion Gap 5 mmol/L (8-16); Aspartate Amino Transferase 19 U/L (14-36); Bilirubin,Total 0.5 mg/dL (0.2-1.3); Blood Urea Nitrogen 5 mg/dL (8-21); Calcium 7.9 mg/dL (8.9-10.7); Carbon Dioxide 23 mmol/L (22-30); Chloride 111 mmol/L (98-107); Estimated Glomerular Filt Rate > 60; Glucose 82 mg/dL (65-110); Sodium 139 mmol/L (134-143)
--- NOTE | 2023-03-08 11:49 | PC.NURSE ---
Dr. Rollins called back. Labs and blood pressures reported to Dr. Rollins. Order received for 200mg Labetalol PO now and to schedule her for BID 200mg Labetalol. Order obtained for Vevay 10/325 Q4HR PRN for pain. MD notified that wound nurse recommend IV antibiotics. No order for IV or oral antibiotics at this time.
[2023-03-08] MEDS: LABETALOL HCL 100 MG TABLET 200 MG PO ×2 (12:05→21:21)
--- NOTE | 2023-03-08 13:35 | PC.NURSE ---
Pt to stay for observation. Discussed room placement with Dr. Rollins since pt has potential wound infection. Dr. Rollins requested pt to remain on OB for management of blood pressure/post PIH. Spoke with Shanika Stern RN infection control It is okay for pt to stay on our unit. Pt has wound vac which contains drainage and staff should use good universal precautions. Message left with Dr. Rollins that pt will remain in OB first floor.
--- NOTE | 2023-03-08 21:27 | PC.NURSE ---
Pt denies TRIMBLE, blurred vision, RUQ pain, or other PrE s/s.
[2023-03-09] VITALS (10 sets, daily range): BP systolic 132–149; BP diastolic 78–91; PULSE 53–90; RESP 16–18; TEMP 36.3–36.6; O2SAT 98–99
[2023-03-09] MEDS: HYDROcodone/acetaminophen (*CRX) 10-325 MG TABLET 1 TAB PO ×3 (04:14→21:01)
--- NOTE | 2023-03-09 05:58 | PC.NURSE ---
Report given to CHAPARRITA Moore
[2023-03-09] MEDS: LABETALOL HCL 100 MG TABLET 200 MG PO ×2 (08:24→21:02)
--- NOTE | 2023-03-09 10:01 | PM.IMHP ---
H&P: HPI History of Present Illness Date/Time: 03/09/23 10:01 Chief Complaint: Abdominal pain Narrative: this patient is a 17-year-old 1 para 1 who is about 1 week postop from a delivery. She had a wound abscess that was opened in the office yesterday. It was packed with dry dressings. She was admitted for wound care consultation and preeclampsia /Gestational hypertension. She was treated with blood pressure medications and her blood pressures improved. Wound care has seen her and applied a wound VAC. we continue to monitor for preeclampsia and observe the patient. We are waiting for insurance approval of the wound VAC. She will be discharged later today likely. She will follow-up with me in 2 weeks. No evidence of severe preeclampsia. Review of Systems Review of Systems: All systems reviewed & are unremarkable except as noted in HPI and below Constitutional: Constitutional: Denies chills, Denies fatigue, Denies fever(s) and Denies weakness Eyes: Eyes: Denies blurry vision, Denies change in vision, Denies loss of peripheral vision, Denies loss of vision, Denies other visual disturbances and Denies eye pain ENT: Denies vertigo, Denies dizziness, Denies hearing loss, Denies mouth pain, Denies nasal obstruction, Denies neck mass and Denies neck pain Cardiovascular: Cardiovascular: Denies chest pain, Denies diaphoresis, Denies syncope, Denies leg edema and Denies dyspnea Respiratory: Respiratory: Denies chest congestion, Denies cough, Denies hemoptysis, Denies dyspnea and Denies wheezing Gastrointestinal: Gastrointestinal: Denies abdominal pain, Denies constipation, Denies diarrhea, Denies nausea and Denies vomiting Genitourinary: Genitourinary: Denies hematuria, Denies change in libido, Denies nocturia, Denies genital lesions, Denies flank pain and Denies urinary urgency Musculoskeletal: Musculoskeletal: Denies abnormal gait, Denies back pain, Denies myalgias, Denies arthralgias, Denies joint swelling, Denies muscle weakness and Denies neck pain Integumentary/Breasts: Skin/Breast: Denies swelling, Denies breast pain, Denies breast mass, Denies dry skin, Denies nipple discharge, Denies unusual bruising and Denies jaundice Neurologic: Denies Neuro-related abnormal movements, Denies Abnormal speech present, Denies abnormal gait, Denies behavioral changes, Denies confusion, Denies vertigo, Denies dizziness, Denies syncope, Denies loss of vision, Denies memory loss, Denies convulsions and Denies weakness Psychiatric: Psychiatric: Denies abnormal sleep pattern, Denies behavioral changes, Denies change in libido, Denies confusion, Denies depression, Denies anhedonia and Denies memory loss Endocrine: Endocrine: Reports no additional endocrine complaints, Denies change in libido and Denies fatigue Hematologic/Lymphatic: Hematologic/Lymphatic: Reports no additional hematologic/lymphatic complaints Allergic/Immunologic: Allergic/Immunologic: Reports no additional allergic/immunologic complaints and Denies wheezing PMFSH Family History Family History Father Diabetes mellitus Mother Diabetes mellitus Social History Social History Smoking status: Never smoker Substance use: never Lack of Transportation: No Lack of Food: Never True Current Housing: I Have Housing Concerned About Future Housing: No Difficulty Paying Gas/Electric Bills: No Difficulty Paying for Meds: No Currently Unemployed: No Education: High School Diploma/GED Difficulty w/ Childcare or Family Care: No Spiritual care concerns: No Meds Home Medications and Allergies Home Medications Medication Instructions Recorded Confirmed Type vit#24-iron amino acid 1 tablet PO DAILY 02/26/23 03/08/23 History chelat-folic acid 30 mg-975 mcg tablet hydrocodone 5 mg-acetaminophen 325 1 tablet PO Q4H SD
--- NOTE | 2023-03-09 14:03 | PC.NURSE ---
Pulse ox reading automatically imputed from monitor are not accurate. Pts pulse ox within normal limits.
[2023-03-09] MEDS: IBUPROFEN 600 MG TABLET PO (16:08)
[2023-03-10] VITALS (14 sets, daily range): BP systolic 85–134; BP diastolic 49–93; PULSE 57–114; RESP 14–15; TEMP 36.8–37.8; O2SAT 82–97
--- NOTE | 2023-03-10 08:34 | PM.OBPNVD ---
OB - PN: Subj Subjective Date/time seen: 03/10/23 08:34 Interval history: patient has no complaints today. She is comfortable. There is no bleeding, foul discharge, concerns while wound. It is contained within the wound VAC. she denies any foul-smelling vaginal discharge. She denies any nausea, vomiting, fever, chills. She denies any chest pain shortness of breath. Continue to observe. And care for her wound. She will continue to be seen by wound care. Observe for infection, fever OB - PN: Obj Data Labs 03/08/23 10:20 03/08/23 10:20 OB - PN A/P Assessment and Plan (1) Postoperative wound abscess: Code(s): T81.49XA - Infection following a procedure, other surgical site, initial encounter Status: Acute Plan patient has no complaints today. She is comfortable. There is no bleeding, foul discharge, concerns while wound. It is contained within the wound VAC. she denies any foul-smelling vaginal discharge. She denies any nausea, vomiting, fever, chills. She denies any chest pain shortness of breath. Continue to observe. And care for her wound. She will continue to be seen by wound care. Observe for infection, fever Time Spent With Patient Time: Total time spent is greater than 50% in coordination of care (as documented) at patient's floor/unit and/or counseling patient: Exam Const: General: cooperative, healthy appearing, comfortable and no acute distress Orientation/consciousness: oriented to person, oriented to place and oriented to time HENMT: Head: normal to inspection Ears: external ears normal Face/Nose/Sinus: Normal external nose present and normal facial exam Face and sinus: normal facial exam Eyes: General: appearance normal, both eyes and all related structures Neck: Neck: normal visual inspection, trachea midline and supple Resp: Auscultation: clear to auscultation bilaterally, no crackles, no rales, no rhonchi and no wheezes Cardio: Rate: regular rate Rhythm: regular rhythm Heart sounds: no click, no murmurs and no rubs GI: GI Palp: No abdominal tenderness, No Soft to palpation, No Tenderness to palpation present (GI) and No Palpable mass present Auscultation: normal bowel sounds Skin: General skin exam: normal color and no rashes or lesions noted Neuro: General: oriented to person, oriented to place and oriented to time Extrem: General: normal to inspection, no joint enlargement, no clubbing, cyanosis or edema, no pedal edema and no calf tenderness Psych: Appearance: grossly normal Mental Status: mental status grossly normal Speech and movement: Normal speech and movement present
[2023-03-10] MEDS: LABETALOL HCL 100 MG TABLET 200 MG PO ×2 (08:43→20:27)
[2023-03-10] MEDS: IBUPROFEN 600 MG TABLET PO ×2 (08:44→16:01)
--- NOTE | 2023-03-10 12:27 | PC.NURSE ---
1200--Pt. sitting up in chair holding , denies any pain at this time. Will continue to monitor.
--- NOTE | 2023-03-10 12:43 | PC.NURSE ---
1243--Dr. Rollins made aware of preliminary microbiology report of wound culture shows moderate growth of E. Coli, no new orders received at this time.
--- NOTE | 2023-03-10 15:23 | PC.NURSE ---
1520--Pt. moved to room 115 for pt's comfort. Pt. ambulated without assistance, states she feels really good , denies any pain at this time.
[2023-03-10] MEDS: SODIUM CHLORIDE 0.9% IV 250 ML BAG IRRIGATION (16:54)
[2023-03-10] MEDS: metroNIDAZOLE 500 MG/ISO 100ML 500 MG/100 ML BAG 100 MG IVPB (16:56)
--- NOTE | 2023-03-10 17:25 | PC.NURSE ---
1715--IV site infiltrated and leaking around IV cath. Cath DC'd at this time, tip intact, and will resite IV.
--- NOTE | 2023-03-10 17:27 | PC.NURSE ---
1625--Report to Dr. Rollins re: v.s., orders received to start flagyl IV and cefotan IV.
--- NOTE | 2023-03-10 18:00 | PC.NURSE ---
New IV in and antibiotics resumed.
[2023-03-10] MEDS: cefoTEtan DISODIUM INJ 2 GM in DEXTROSE 5% IN WATER 50 ML IVPB (18:57)
--- NOTE | 2023-03-10 19:06 | PC.NURSE ---
Pt denies any pain, RUQ pain, changes in vision, or headache at this time. RN states that she feels much better after fever has gone down.
--- NOTE | 2023-03-10 20:45 | PC.NURSE ---
2030- Pt reports no pain at this time. Pt advised to call out with any questions or concerns.
[2023-03-11] VITALS (16 sets, daily range): BP systolic 122–144; BP diastolic 78–102; PULSE 67–115; RESP 15–18; TEMP 37–37.5; O2SAT 96–100
[2023-03-11] MEDS: metroNIDAZOLE 500 MG/ISO 100ML 500 MG/100 ML BAG 100 MG IVPB ×3 (01:22→16:24)
[2023-03-11] MEDS: IBUPROFEN 600 MG TABLET PO ×3 (02:22→16:29)
[2023-03-11] MEDS: cefoTEtan DISODIUM INJ 2 GM in DEXTROSE 5% IN WATER 50 ML IVPB ×2 (07:01→19:56)
--- NOTE | 2023-03-11 08:43 | PC.NURSE ---
Dr. Rollins at BS to see pt. and discuss POC.
--- NOTE | 2023-03-11 08:46 | PM.OBPNVD ---
OB - PN: Subj Subjective Date/time seen: 03/11/23 08:46 Interval history: This patient is a 17-year-old female with postoperative wound abscess. She is approximately postop day 10 from a delivery. She appears happy. She has patient has no complaints today. She is comfortable. There is no bleeding, foul discharge, concerns while wound. It is contained within the wound VAC. she denies any foul-smelling vaginal discharge. She denies any nausea, vomiting, fever, chills. She denies any chest pain shortness of breath. Continue to observe. And care for her wound. She will continue to be seen by wound care. Observe for infection /cellulitis, fever. We initiated antibiotics yesterday due to elevated body temperature and a culture for E coli. OB - PN: Obj Data Labs 03/08/23 10:20 03/08/23 10:20 OB - PN A/P Assessment and Plan (1) Postoperative wound abscess: Code(s): T81.49XA - Infection following a procedure, other surgical site, initial encounter Status: Acute Plan This patient is a 17-year-old female with postoperative wound abscess. She is approximately postop day 10 from a delivery. She appears happy. She has patient has no complaints today. She is comfortable. There is no bleeding, foul discharge, concerns while wound. It is contained within the wound VAC. she denies any foul-smelling vaginal discharge. She denies any nausea, vomiting, fever, chills. She denies any chest pain shortness of breath. Continue to observe. And care for her wound. She will continue to be seen by wound care. Observe for infection /cellulitis, fever. We initiated antibiotics yesterday due to elevated body temperature and a culture for E coli. Time Spent With Patient Time: Total time spent is greater than 50% in coordination of care (as documented) at patient's floor/unit and/or counseling patient:
[2023-03-11] MEDS: LABETALOL HCL 100 MG TABLET 200 MG PO ×2 (08:57→21:02)
--- NOTE | 2023-03-11 12:08 | PC.NURSE ---
Pt. sitting up on couch in her room, denies pain, states she is feeling pretty good .
[2023-03-11] MEDS: SODIUM CHLORIDE 0.9% IV 250 ML BAG IRRIGATION (20:32)
[2023-03-12] VITALS (9 sets, daily range): BP systolic 139–148; BP diastolic 84–104; PULSE 81–99; RESP 16–18; TEMP 36.6–37.3; O2SAT 99–100
[2023-03-12] MEDS: metroNIDAZOLE 500 MG/ISO 100ML 500 MG/100 ML BAG 100 MG IVPB ×2 (00:58→08:48)
[2023-03-12] MEDS: IBUPROFEN 600 MG TABLET PO ×2 (00:58→07:50)
--- NOTE | 2023-03-12 05:00 | PC.NURSE ---
RN at bedside PT sleep on couch with laying on top of her. RN informed PT of risk of co sleeping with baby, advised PT to put infant in crib. Infant moved to crib, PT verbalizes understanding.
[2023-03-12] MEDS: cefoTEtan DISODIUM INJ 2 GM in DEXTROSE 5% IN WATER 50 ML IVPB (07:18)
--- NOTE | 2023-03-12 07:56 | PM.OBPNVD ---
OB - PN: Subj Subjective Date/time seen: 03/12/23 07:56 Interval history: This patient is a 17-year-old female with postoperative wound abscess. She is approximately postop day 11 from a delivery. She appears happy. She has patient has no complaints today. She is comfortable. There is no bleeding, foul discharge, concerns while wound. It is contained within the wound VAC. she denies any foul-smelling vaginal discharge. She denies any nausea, vomiting, fever, chills. She denies any chest pain shortness of breath. She will likely be discharged today. We await insurance approval for the wound VAC. Wound care is working on this and she will be discharged without antibiotics and follow-up in 1 week. OB - PN: Obj Data Labs 03/08/23 10:20 03/08/23 10:20 OB - PN A/P Assessment and Plan (1) Postoperative wound abscess: Code(s): T81.49XA - Infection following a procedure, other surgical site, initial encounter Status: Acute Plan This patient is a 17-year-old female with postoperative wound abscess. She is approximately postop day 11 from a delivery. She appears happy. She has patient has no complaints today. She is comfortable. There is no bleeding, foul discharge, concerns while wound. It is contained within the wound VAC. she denies any foul-smelling vaginal discharge. She denies any nausea, vomiting, fever, chills. She denies any chest pain shortness of breath. She will likely be discharged today. We await insurance approval for the wound VAC. Wound care is working on this and she will be discharged without antibiotics and follow-up in 1 week. Time Spent With Patient Time: Total time spent is greater than 50% in coordination of care (as documented) at patient's floor/unit and/or counseling patient:
[2023-03-12] MEDS: LABETALOL HCL 100 MG TABLET 200 MG PO (08:48)
--- NOTE | 2023-03-12 15:25 | PC.NURSE ---
Maxine RN, wound nurse at the bedside removing wound vac and placing a new dressing. Pt being discharged and will see Wound care nurse in the clinic tomorrow afternoon for dressing change. Pt states she understand the plan and will see the wound care nurse tomorrow.
--- NOTE | 2023-03-12 16:01 | PC.NURSE ---
Addendum entered by Maxine Fernandez RN 03/12/23 16:48: Dr. Rollins would like to see pt in 1 week in office. Original Note: Dr. Rollins notified of wound vac being removed and dressing applied. Discharge order received. No order for oral antibiotics received. RN to remind pt to picker packer her labetalol prescription at the pharmacy.
--- NOTE | 2023-04-01 20:37 | PM.OBTRLD ---
OB - Triage/Final Diagnosis Visit Information Comments/Additional reasons for admission: I have assessed the risk for this patient, Moisés Olson, and determined that she would benefit from observation care. Evaluation Laboratory results: Laboratory Tests 03/08/23 10:20 WBC 6.2 RBC 3.34 L Hgb 9.7 L Hct 29.9 L MCV 89.5 MCH 29.0 MCHC 32.4 RDW 13.0 Plt Count 222 D MPV 9.6 Immature Gran % (Auto) 2.3 H Neut % (Auto) 75.0 H Lymph % (Auto) 13.6 L [place] % (Auto) 5.5 Eos % (Auto) 3.1 Baso % (Auto) 0.5 Lymph # (Auto) 0.84 L [place] # (Auto) 0.3 Eos # (Auto) 0.2 Baso # (Auto) 0.0 Abs Immat Gran (auto) 0.14 H Absolute Neuts (auto) 4.6 Absolute Nucleated RBC 0.0 Nucleated RBC % 0.0 Sodium 139 Potassium 4.0 Chloride 111 H Carbon Dioxide 23 Anion Gap 5 L BUN 5 L D Creatinine 0.60 L Estim Creat Clear Calc Not Reportable Estimated GFR > 60 Glucose 82 Uric Acid 7.0 H Calcium 7.9 L Total Bilirubin 0.5 AST 19 ALT 17 Alkaline Phosphatase 214 H Total Protein 6.0 L Albumin 2.9 L Final Diagnosis (1) False labor: Code(s): O47.9 - False labor, unspecified Status: Acute
--- NOTE | 2023-04-01 20:43 | PM.DS ---
DS: Admitting Diagnosis Discharge Date 03/12/23 Admitting Diagnosis gestational hypertension DS: Discharge Diagnosis Discharge Diagnosis (1) Gestational hypertension: Code(s): O13.9 - Gestational [-induced] hypertension without significant proteinuria, unspecified trimester Status: Acute DS: Summary Hospital Course Reason for hospitalization: elevated blood pressure Hospital Course: this patient is a 17-year-old female who is , the near period, she has elevated blood pressures and preeclampsia. She is admitted for elevated blood pressures and monitored and treated for elevated blood pressures. Her blood pressures were controlled. She was observed. Her disease seemed to improve and later when stable she was discharged. Time Spent with Patient Time attestation: Total time spent providing and/or coordinating discharge services: Discharge Plan Discharge Discharging Clinician: Tomy Rollins Patient Disposition: Home, Self-Care Activity: as tolerated Diet: as tolerated Wound Care Instructions: follow printed instructions and keep dressing dry Discharge Instructions: OB ANTEPARTUM DISCHARGE INSTRUCTIONS This information is given to help you properly care for yourself at home after your discharge from the hospital. Follow these instructions until your doctor tells you otherwise. DIET: Eat Three Well Balanced Meals per Day Small Frequent Feedings Drink at Least Eight 8-Ounce Glasses of Caffeine-Free Beverages Daily ACTIVITY: As Tolerated Additional Activity Instructions: See Maxine CHEATHAM wound nurse tomorrow 03/13 for wound care. FOLLOW-UP CARE: Call Office and Make Appointment To see Call Dr. Rollins's office for appointment in 1 week for follow up appointment. in/on If outside dressing gets saturated with blood: remove ABD pad and gauze pads. Leave silver rope in place. Reapply new dry gauze and ABD pad. You will be seen at the [facility] wound center tomorrow 03/13/23 at 1:30pm Please arrive to Hospital Entrance 1(main lobby of hospital) by 1:00pm for Registration Registration is located to the left of the main doors. Once you are registered, use the elevators in the same lobby to the 2nd floor. You will see signs to direct you to the wound center. If we need to change the appointment time tomorrow, please contact office at [phone] Stand Alone Forms: General Discharge Information Follow-up/Referrals: Tomy Rollins MD [Physician] - Discharge Medications: New ibuprofen 600 mg Tablet 600 mg PO Q6H PRN (Reason: Pain Rated 1-3) 0RF labetalol 100 mg Tablet 200 mg PO Q12HR 0RF Continued PNV no.31-[id number] acid 30-975 mg-mcg Tablet 1 tablet PO DAILY No Action hydrocodone-acetaminophen 5-325 mg tablet 1 tablet PO Q4H PRN (Reason: pain) Qty: 25 0RF Date of admission: 03/10/23 08:30 Primary Care Provider: PHYSICIAN,DENTAL TECHNICIAN INSTRUCTOR Admitting Provider: Tomy Rollins Attending physician on admission: Tomy Rollins Condition: Stable
== END 2023-03-12 16:25 | disposition home or self-care (01) | DRG 561 ==
LOC: ANHOBOP 10:00 → ANHOBPP 10:00
PROVIDERS: Admitting Provider Obstetrics & Gynecology; Visit Provider Obstetrics & Gynecology
DX: O86.00 Infection of obstetric surgical wound, unspecified (principal); B96.20 Unspecified Escherichia coli [E. coli] as the cause of diseases classified elsewhere; O14.95 Unspecified pre-eclampsia, complicating the puerperium
CPT/HCPCS: 36415; 80053; 84550; 85025; 87070; 87077; 87186; 87205; A9270; J7050

== ENCOUNTER 2023-04-06 07:51 | Outpatient (RCR) | payer MEDICAID, SELFPAY ==
[2023-03-13 13:40] VITALS: BMI 51.0
--- NOTE | 2023-03-23 10:53 | PCWOUND ---
WOCN Note Patient did not show up for her scheduled appointment today at 10:00am, call was made to patient, left voicemail for her to call us back so that she can be rescheduled.
== END 2023-05-30 07:39 | disposition home or self-care (01) ==
LOC: ANHWOC 07:51
PROVIDERS: Visit Provider Obstetrics & Gynecology
DX: T81.31XD Disruption of external operation (surgical) wound, not elsewhere classified, subsequent encounter (principal)
CPT/HCPCS: 99213; G0463